=== PATIENT | female | born 1960 | race Caucasian/White ===

== ENCOUNTER 2024-05-28 17:24 | Emergency (ER) | payer OTHER ==
[~2024-05-28] VITALS: Ht 175.3 cm; Wt 86.1 kg
[2024-05-28 18:03] VITALS: BP 157/93; PULSE 72; O2SAT 97
[2024-05-28 22:33] VITALS: RESP 18
[2024-05-28] MEDS: acetaminophen 325mg tablet PO STA (22:33)
[2024-05-28] MEDS: ketorolac trometh 30MG/ML vial 30 MG/ML VIAL IM STA (22:33)
[2024-05-28] MEDS ORDERED: MELO-102 PO (23:13)
[2024-05-28] MEDS ORDERED: METH-798 PO (23:13)
[2024-05-29] MEDS ORDERED: HYDR-3965 PO (00:03)
[2024-05-29 00:13] VITALS: TEMP 97.8
== END 2024-05-29 00:13 | disposition home or self-care (01) ==
LOC: ER 17:25
DX: S19.9XXA Unspecified injury of neck, initial encounter (principal); S09.90XA Unspecified injury of head, initial encounter; M54.50 Low back pain, unspecified; M54.2 Cervicalgia; Z88.2 Allergy status to sulfonamides; V89.2XXA Person injured in unspecified motor-vehicle accident, traffic, initial encounter; Y93.89 Activity, other specified; Y92.89 Other specified places as the place of occurrence of the external cause; Y99.8 Other external cause status
CPT/HCPCS: 72128; 72131; 96372; 99285; J1885; L0172